=== PATIENT | female | born 1965 | race Caucasian/White ===

== ENCOUNTER 2019-08-10 11:16 | Outpatient (CLI) | payer BC, SELFPAY ==
--- NOTE | 2019-08-10 11:40 | MM_ITS ---
WS: [id number] BILATERAL DIGITAL SCREENING MAMMOGRAPHY WITH CAD CLINICAL INFORMATION: SCREENING HISTORY: Screening mammogram. No current complaints. COMPARISON: TECHNIQUE: Bilateral CC and MLO views. FINDINGS: Scattered fibroglandular densities bilaterally. No suspicious focal mass, asymmetry, calcifications, or architectural distortion. No evidence of malignancy. MM/[id number] IMPRESSION: BI-RADS: 1-Negative FOLLOW UP: 1 Year Follow-up Recommend return to annual screening mammography.
== END 2019-08-10 11:17 | disposition home or self-care (01) ==
PROVIDERS: Family Provider Nurse Practitioner; PCP Nurse Practitioner; Visit Provider Nurse Practitioner
DX: Z12.31 Encounter for screening mammogram for malignant neoplasm of breast (principal)
CPT/HCPCS: 77067

== ENCOUNTER → 2020-01-08 14:10 | Outpatient (BNVA) | payer BC, SELFPAY | PROVIDERS: Family Provider Nurse Practitioner; PCP Nurse Practitioner; Visit Provider Nurse Practitioner | DX: M79.671 Pain in right foot (principal) | CPT/HCPCS: 73630 ==

== ENCOUNTER → 2021-05-22 11:48 | Outpatient (BNVA) | payer BC, SELFPAY | PROVIDERS: Family Provider Nurse Practitioner; PCP Nurse Practitioner; Visit Provider Nurse Practitioner | DX: Z00.00 Encounter for general adult medical examination without abnormal findings (principal) | CPT/HCPCS: 80053; 80061; 82306 ==

== ENCOUNTER → 2021-05-25 09:13 | Outpatient (BNVA) | payer BC, SELFPAY | PROVIDERS: Family Provider Nurse Practitioner; PCP Nurse Practitioner; Visit Provider Nurse Practitioner | DX: M25.562 Pain in left knee (principal); M25.551 Pain in right hip | CPT/HCPCS: 73502; 73562 ==

== ENCOUNTER → 2021-06-28 15:40 | Outpatient (BNVA) | payer BC, SELFPAY | PROVIDERS: Family Provider Nurse Practitioner; PCP Nurse Practitioner; Referring Provider Nurse Practitioner; Visit Provider Specialist | DX: M17.12 Unilateral primary osteoarthritis, left knee (principal); M25.562 Pain in left knee | CPT/HCPCS: 73560; 73565 ==

== ENCOUNTER 2021-08-14 12:11 | Outpatient (CLI) | payer BC, SELFPAY ==
--- NOTE | 2021-08-14 12:00 | MM_ITS ---
WS: [id number] Bilateral screening digital mammogram, 08/14/2021. Clinical Data: Z12.39 - Encounter for other screening for malignant neop... Comparison: 08/10/2019, 06/20/2018, 06/03/2017. Findings: The breast parenchymal pattern shows fat replacement. No spiculated masses or clustered calcification s are seen. There are no secondary signs of carcinoma. MM/[id number] Impression: 1. Negative bilateral mammogram unchanged. 2. Recommend annual screening mammograms. BIRADS: 1-Negative FOLLOW UP: 1 Year Follow-up The CAD furnace checker was used.
== END 2021-08-14 12:12 | disposition home or self-care (01) ==
LOC: RADSHAW 12:14
PROVIDERS: PCP Nurse Practitioner; Visit Provider Nurse Practitioner
DX: Z12.31 Encounter for screening mammogram for malignant neoplasm of breast (principal)
CPT/HCPCS: 77067

== ENCOUNTER 2021-09-19 13:11 | Outpatient (CLI) | payer BC, SELFPAY ==
--- NOTE | 2021-09-19 13:29 | MR_ITS ---
WS: [id number] MRI LEFT KNEE HISTORY: M17.12 - Unilateral primary osteoarthritis, left knee COMPARISON: 06/28/2021 Anterior cruciate ligament: Marked increased signal and thickening throughout the ACL but no tear. Fi ndings are most consistent with mucoid degeneration. Fibers are oriented along the normal course. Posterior cruciate ligament: Intact. Medial collateral ligament: Intact. Posterior lateral corner structures: Intact. Medial menisci: Intact. Normal signal, size and shape. Lateral meniscus: Increased signal in the anterior horn but does not extend to an articular surface. Extensor mechanism: Distal quadriceps tendon and patellar tendons are intact. Fluid and soft tissue: Very small suprapatellar joint effusion. Small amount of fluid in Hernandez's cyst . Osseous and articular structures: Patellofemoral compartment: Normal. Medial compartment: Well-preserved. No cartilage defect. There is a small amount of marrow edema michael uring 12 mm in diameter involving the anterior tibial plateau at the base tibial spine. Lateral compartment: Mild surface irregularity involving the lateral tibial plateau towards the inter condylar notch. MR/MR knee LT wo con* [id number] IMPRESSION: 1. Significant mucoid degeneration within the ACL. 2. Superficial thinning and irregularity involving the lateral tibial plateau cartilage. No full-thickness defect. 3. Small amount of marrow edema at the base of the ACL distal attachment of th e tibial plateau.
== END 2021-09-19 13:12 | disposition home or self-care (01) ==
PROVIDERS: PCP Nurse Practitioner; Visit Provider Specialist
DX: M17.12 Unilateral primary osteoarthritis, left knee (principal); R60.0 Localized edema
CPT/HCPCS: 73721

== ENCOUNTER 2022-03-14 07:19 | Day surgery (SDC) | payer BC, SELFPAY ==
[2022-03-12 10:43] VITALS: BMI 28.3
[2022-03-14 07:45] VITALS: BP 133/82; PULSE 62; RESP 18; TEMP 36.4; O2SAT 97
[2022-03-14] MEDS: sodium chloride 0.9% 1,000 ML 30 ML IV (07:54)
--- NOTE | 2022-03-14 07:54 | P.HP_ITS ---
Providers/Chief Complaint Primary Care Provider: ABRAM Chung Chief Complaint: Encounter for screening for malignant neoplasm History of Present Illness Maulik Parnell is a 56 year old female here for routine screening colonoscopy Medications/Allergies Home Medications Medication Instructions Recorded Confirmed Last Taken Type cholecalciferol (vitamin D3) 25 25 mcg PO DAILY #30 caps 06/08/21 03/12/22 03/12/22 Rx mcg (1,000 unit) capsule melatonin 5 mg capsule 5 mg PO DAILY 10/04/21 03/14/22 03/12/22 History multivitamin 1 tab PO DAILY 10/04/21 03/12/22 03/12/22 History loratadine 10 mg tablet 10 mg PO DAILY 03/12/22 03/12/22 03/12/22 History omega 9-vcm-hwr-fish oil 1,000 mg 1 cap PO BID 03/12/22 03/12/22 03/12/22 Histor y (120 mg-180 mg) capsule (Fish Oil) clonazepam 0.5 mg tablet (Klonopin) 0.5 mg PO .COMPLEX PRN SLEEP 03/14/22 03/12/22 Unknown History Allergies Allergy/AdvReac Type Severity Reaction Status Date / Time No Known Allergies Allergy Verified 03/12/22 10:36 PFSH Acute PFSH: Medical History Hyperlipidemia, mixed Situational anxiety Surgical History No history of previous surgery Family History Other Hypertension Lung disease Denies family history of Diabetes Clotting disorder Dementia Suicide Stroke Social History Smoking and tobacco status: never smoked Second hand smoke exposure: No Smoking risk assessment/counseling performed?: No Alcohol intake: current Alcohol intake frequency: holidays/special occasions only Desire information about alcohol rehabilitation?: No Counseling given: No Desire information about substance/drug rehabilitation?: No Counseling given: No Adopted: No Caregiver/support person: No Lives independently: Yes Household members: spouse Housing: House Marital status: Number of children: 1 Number of grandchildren: 8 Highest education level completed: High School Graduate service: No Current occupational status: retired Pets and animals: Yes Current gender identity: Female Vitals/I&O/Wt Last Vital Signs Temp 97.6 F 03/14/22 07:45 Pulse 62 03/14/22 07:45 Resp 18 03/14/22 07:45 BP 133/82 03/14/22 07:45 Pulse Ox 97 03/14/22 07:45 O2 Del Method 03/14/22 07:45 Weight last 48 hrs Weight 165 lb Physical Exam Narrative: General : Patient is well developed , no acute distress, oriented x3 Head : Normal cephalic, a-traumatic. Ears : Pinnae and external canal are normal. Hearing is normal. Eyes : PERRLA, Sclera and injection are normal. No conjunctival discharge. Nose : Mucous membranes are without erythema. Throat : buccal mucosa is normal, gums are without significant recession or hypertrophy. Lungs : Equal chest rise bilaterally, no use of accessory muscles, trachea is midline. Cor : Rate and rhythm are normal. Abdomen : Soft, ND, NT, no g/r/m Extremities : No edema, no cyanosis or clubbing, dorsalis pedis pulses are present bilaterally, non-tender to palpation of calves. Upper extremities are normal bilaterally. Back : non-tender to palpation, no CVA tenderness. Neuro : CN II - XII intact, Upper and lower extremities have equal and full strength A&P Assessment and plan (1) Colon cancer screening: Status: Acute Plan Colonoscopy The risks and benefits of the procedure, including bleeding, infection, intestinal perforation requiring surgery, missed lesion, or explained to the patient. He is understanding of the risks and wishes to proceed. Attestations Medical Necessity Statement*: Patient will be discharged home Coding Level of Care Code Acute Mill Tender Warm Up for Izzy Munoz Diagnoses Colon cancer screening Z12.11
--- NOTE | 2022-03-14 09:18 | ANES.PREANE2 ---
Pre-Anesthetic Assessment Height/Weight: Height 1.63 m Weight 74.843 kg Temp Pulse Resp BP Pulse Ox O2 Del Method 97.6 F 62 18 133/82 97 03/14/22 07:45 03/14/22 07:45 03/14/22 07:45 03/14/22 07:45 03/14/22 07:45 03/14/22 07:45 Preop Diagnosis: screening Operation Date: 03/14/22 09:00 Proposed Procedures p Colonoscopy [id number],Z12.11(Not Applicable) - Clif Solomon DO Familial anesthetic complications: none Was Beta Benji taken within 24 hours: N/A Was Clonidine taken within 24 hours: N/A Last intake: Intake Last Liquid Date 03/13/22 Last Liquid Time 20:00 Last Solid Date 03/12/22 Last Solid Time 18:00 Last Intake: 20:00 Social No alcohol and No tobacco Exam alert, oriented x 3, clear to auscultation bilaterally and regular rate & rhythm Airway Submandibular: within normal limits Cervical ROM: within normal limits Mallampati: Class II Pulmonary None reported CV/HEM None reported None reported Hepatic None reported GI Gastroesophageal Reflux Disease (occ food related) Metabolic None reported Musc/skel None reported Neuropsych Anxiety Anesthetic Plan ASA status: 1 Anesthesia: MAC Risk of > 500 ml blood loss (7ml/kg in children): No Medications/Allergies Home Medications Medication Instructions Recorded Confirmed Last Taken Type cholecalciferol (vitamin D3) 25 25 mcg PO DAILY #30 caps 06/08/21 03/12/22 03/12/22 Rx mcg (1,000 unit) capsule melatonin 5 mg capsule 5 mg PO DAILY 10/04/21 03/14/22 03/12/22 History multivitamin 1 tab PO DAILY 10/04/21 03/12/22 03/12/22 History loratadine 10 mg tablet 10 mg PO DAILY 03/12/22 03/12/22 03/12/22 History omega 7-lrx-pry-fish oil 1,000 mg 1 cap PO BID 03/12/22 03/12/22 03/12/22 History (120 mg-180 mg) capsule (Fish Oil) clonazepam 0.5 mg tablet (Klonopin) 0.5 mg PO .COMPLEX PRN SLEEP 03/14/22 03/12/22 Unknown History Allergies Allergy/AdvReac Type Severity Reaction Status Date / Time No Known Allergies Allergy Verified 03/12/22 10:36 Current Medications Generic Name Dose Route Start Last Admin Trade Name Freq PRN Reason Stop Dose Admin Sodium Chloride 1,000 mls @ 30 mls/hr 03/14/22 07:45 03/14/22 07:54 Sodium Chloride 0.9% IV 03/15/22 07:44 30 mls/hr .Q24H HYUN Administration PFSH Anesthesia Medical History Hyperlipidemia, mixed Situational anxiety Surgical History No history of previous surgery Family History Other Hypertension Lung disease Denies family history of Diabetes Clotting disorder Dementia Suicide Stroke Social History Smoking and tobacco status: never smoked Second hand smoke exposure: No Smoking risk assessment/counseling performed?: No Alcohol intake: current Alcohol intake frequency: holidays/special occasions only Desire information about alcohol rehabilitation?: No Counseling given: No Desire information about substance/drug rehabilitation?: No Counseling given: No Adopted: No Caregiver/support person: No Lives independently: Yes Household members: spouse Housing: House Marital status: Number of children: 1 Number of grandchildren: 8 Highest education level completed: High School Graduate service: No Current occupational status: retired Pets and animals: Yes Current gender identity: Female Data Anesthesia Cardiac Studies: No Data to Display
[2022-03-14 10:10] VITALS: BP 106/77; PULSE 67; RESP 16; TEMP 36.4; O2SAT 96
--- NOTE | 2022-03-14 10:15 | ANE.PACU2 ---
Inpatient post-anesthesia follow up: Airway intact: Yes Vital signs: Temperature 97.6 F Pulse Rate 62 Respiratory Rate 18 Blood Pressure 133/82 Pulse Oximetry 97 Oxygen Delivery Me thod Room Air Oxygen Flow Rate Fraction of Inspir ed Oxygen Hydration adequate: Yes Nausea and vomiting: No Pain level: 1 Mental status: Baseline
[2022-03-14 10:21] VITALS: BP 117/71; PULSE 60; RESP 18; TEMP 36.8; O2SAT 95
== END 2022-03-14 10:34 | disposition home or self-care (01) ==
PROVIDERS: PCP Nurse Practitioner; Visit Provider Surgery
PROC: 0DJD8ZZ Inspection of Lower Intestinal Tract, Via Natural or Artificial Opening Endoscopic (ICD-10-PCS; CPT 45378; principal; 2022-03-14 09:00)
DX: Z12.11 Encounter for screening for malignant neoplasm of colon (principal); E78.2 Mixed hyperlipidemia
CPT/HCPCS: 45378; J2704; J7030

== ENCOUNTER → 2022-05-29 11:35 | Outpatient (BNVA) | payer BC, SELFPAY | PROVIDERS: PCP Nurse Practitioner; Visit Provider Nurse Practitioner | DX: E78.2 Mixed hyperlipidemia (principal); E55.9 Vitamin D deficiency, unspecified | CPT/HCPCS: 80053; 80061; 82306; 84443; 85025 ==

== ENCOUNTER 2022-08-29 13:05 | Outpatient (CLI) | payer BC, SELFPAY ==
--- NOTE | 2022-08-29 13:20 | MM_ITS ---
WS: [id number] BILATERAL 3D TOMOSYNTHESIS DIGITAL SCREENING MAMMOGRAPHY WITH CAD CLINICAL INFORMATION: Z12.39 - Encounter for other screening for malignant neop... HISTORY: Screening mammogram. LEFT breast pain and soreness. Discharge LEFT breast. COMPARISON: August 14, 2021 TECHNIQUE: Bilateral CC and MLO views. FINDINGS: Scattered fibroglandular densities bilaterally. No suspicious focal mass, asymmetry, calcifications, or architectural distortion. No evidence of malignancy. MM/[place] [id number] IMPRESSION: BI-RADS: 1-Negative FOLLOW UP: 1 Year Follow-up Recommend return to annual screening mammography.
== END 2022-08-29 13:06 | disposition home or self-care (01) ==
LOC: RAD 13:07
PROVIDERS: PCP Nurse Practitioner; Visit Provider Nurse Practitioner
DX: Z12.31 Encounter for screening mammogram for malignant neoplasm of breast (principal)
CPT/HCPCS: 77063; 77067

== ENCOUNTER → 2022-11-05 10:46 | Outpatient (BNVA) | payer BC, SELFPAY | PROVIDERS: PCP Nurse Practitioner; Referring Provider Nurse Practitioner; Visit Provider Specialist | DX: M16.11 Unilateral primary osteoarthritis, right hip (principal); M70.61 Trochanteric bursitis, right hip | CPT/HCPCS: 73502 ==

== ENCOUNTER → 2023-10-03 09:25 | Outpatient (BNVA) | payer BC, SELFPAY | PROVIDERS: PCP Nurse Practitioner; Visit Provider Nurse Practitioner | DX: E78.2 Mixed hyperlipidemia (principal); E55.9 Vitamin D deficiency, unspecified; R22.41 Localized swelling, mass and lump, right lower limb | CPT/HCPCS: 80053; 80061; 82306; 82607; 84443; 85025 ==

== ENCOUNTER 2023-10-08 10:48 | Outpatient (CLI) | payer BC, SELFPAY ==
--- NOTE | 2023-10-08 11:00 | MM_ITS ---
WS: [id number] BILATERAL 3D TOMOSYNTHESIS DIGITAL SCREENING MAMMOGRAPHY WITH CAD CLINICAL INFORMATION: Z12.31 - Encounter for screening mammogram for malignant ... HISTORY: Screening mammogram. No current complaints. COMPARISON: 2022 TECHNIQUE: Bilateral CC and MLO views. FINDINGS: Scattered fibroglandular densities bilaterally. No suspicious focal mass, asymmetry, calcifications, or architectural distortion. No evidence of malignancy. Vascular calcifications. IMPRESSION: MM/[place] [id number] BI-RADS: 2-Benign FOLLOW UP: 1 Year Follow-up Recommend return to annual screening mammography.
== END 2023-10-08 10:49 | disposition home or self-care (01) ==
LOC: MOBLMAM 10:51
PROVIDERS: PCP Nurse Practitioner; Visit Provider Nurse Practitioner
DX: Z12.31 Encounter for screening mammogram for malignant neoplasm of breast (principal)
CPT/HCPCS: 77063; 77067

== ENCOUNTER → 2023-10-15 09:53 | Outpatient (BNVA) | payer BC, SELFPAY | PROVIDERS: PCP Nurse Practitioner; Visit Provider Nurse Practitioner | DX: R79.89 Other specified abnormal findings of blood chemistry (principal) | CPT/HCPCS: 84439; 84481 ==

== ENCOUNTER 2024-01-27 11:00 | Outpatient (CLI) | payer BC, SELFPAY | END 2024-01-27 11:01 | disposition home or self-care (01) | LOC: SPT 11:22 | PROVIDERS: PCP Nurse Practitioner; Visit Provider Podiatrist Foot & Ankle Surgery | DX: Z46.89 Encounter for fitting and adjustment of other specified devices (principal); M72.2 Plantar fascial fibromatosis | CPT/HCPCS: L3030 ==

== ENCOUNTER 2024-11-04 13:40 | Outpatient (CLI) | payer BC, SELFPAY ==
--- NOTE | 2024-11-04 13:40 | MM_ITS ---
WS: [id number] Bilateral screening 3D tomosynthesis digital mammogram, 11/04/2024 1:41 PM Clinical Data: SCREENING Comparison: 10/08/2023, 08/29/2022, 08/14/2021, 08/10/2019, 06/20/2018, 06/03/2017. Findings: No spiculated masses or clustered calcifications are seen. There are no secondary signs of carcinoma. MM/MM scr BI tomosynthesis [id number] Impression: Negative bilateral mammogram unchanged. Recommend annual screening mammograms. BIRADS: 1 - Negative. FOLLOW UP: 1 Year Follow-up DENSITY: There are scattered areas of fibroglandular density. The CAD lap checker was used
== END 2024-11-04 13:41 | disposition home or self-care (01) ==
LOC: MOBLMAM 13:41
PROVIDERS: PCP Nurse Practitioner Family; Visit Provider Nurse Practitioner Family
DX: Z12.31 Encounter for screening mammogram for malignant neoplasm of breast (principal); R92.323 Mammographic fibroglandular density, bilateral breasts
CPT/HCPCS: 77063; 77067

== ENCOUNTER → 2024-12-08 15:29 | Outpatient (BNVA) | payer BC, SELFPAY | PROVIDERS: PCP Nurse Practitioner Family; Visit Provider Nurse Practitioner Family | DX: E78.2 Mixed hyperlipidemia (principal); R79.89 Other specified abnormal findings of blood chemistry; R03.0 Elevated blood-pressure reading, without diagnosis of hypertension | CPT/HCPCS: 80053; 80061; 82306; 82607; 84439; 84443; 84481; 85025 ==